=== PATIENT | male | born 1930 | race Caucasian/White ===

== ENCOUNTER 2017-01-06 21:04 | Observation (INO) | payer OTHER ==
[~2017-01-06] VITALS: Ht 167.6 cm; Wt 95.9 kg
[~2017-01-06 21:04] MED LIST: ALLOPURINOL300 MG PO; ASPIR 8181 M1 PO; CRESTOR40 MG PO; EYE DROPS15 M2 BOTH EYES; GLIMEPIRIDE4 MG PO; LISINOPRIL5 MG PO; METOPROLOL SUCC50 MG PO; NEXIUM40 MG PO; ONGLYZA2.5 MG PO; PLAVIX75 MG PO; VERAPAMIL HCL180 MG PO; ZESTRIL2.5 MG PO
[2017-01-06 21:44] LABS: HEMATOCRIT 40.8 % (38.0-50.0); MCH 30.4 PG (29.0-34.0); MCHC 33.3 G/DL (30.0-36.0); MCV 91.1 FL (86-99); MEAN PLAT.VOLUME 10.7 uM^3 (9.0-12.4); PLATELET COUNT 137 K/uL (156-360); RBC DIS.WIDTH-CV 14.2 % (11.8-14.6); RBC DIS.WIDTH-SD 46.2 % (39-53); RED BLOOD COUNT 4.48 M/uL (4.00-5.50); WHITE BLOOD COUNT 9.2 K/uL (4.1-10.2)
[2017-01-06 21:58] LABS: CHLORIDE 102 mEq/L (99-109); POTASSIUM 3.8 mEq/L (3.7-5.4); SODIUM 141 mEq/L (136-147)
[2017-01-06 22:00] LABS: GLUCOSE 147 mg/dL (70-99)
[2017-01-06 22:01] LABS: ANION GAP 14 MEQ/L (2-14)
[2017-01-06 22:02] LABS: TOTAL BILIRUBIN 0.6 mg/dL (0.0-1.0)
[2017-01-06 22:04] LABS: ALKALINE PHOSPHATASE 95 IU/L (3-129); GFR ESTIMATE (CALCULATED) 41 mL/min/
[2017-01-06 22:05] LABS: DIRECT BILIRUBIN 0.2 mg/dL (0.0-0.3); UREA NITROGEN (BUN) 22 mg/dL (9-23)
[2017-01-06 22:12] LABS: TROP-I INTERPRETATION NEGATIVE; TROPONIN-I 0.08 ng/mL (0.0-0.30)
[2017-01-06 22:41] LABS: D-DIMER ELISA > 4.00 mg/L FEU (< 0.57)
[2017-01-06 22:48] LABS: POINT-OF-CARE METER ID UU14100415
[2017-01-07 02:25] LABS: INTER. NORMALIZED RATIO 1.1; PROTHROMBIN TIME 11.4 (9.2-11.2); PTT 32.4 (25-32)
[2017-01-07 05:37] VITALS: BP 125/77
[2017-01-07 07:22] LABS: TROP-I INTERPRETATION NEGATIVE; TROPONIN-I 0.09 ng/mL (0.0-0.30)
[2017-01-07 12:14] VITALS: BP 96/55
[2017-01-07 12:16] LABS: TROP-I INTERPRETATION NEGATIVE; TROPONIN-I 0.14 ng/mL (0.0-0.30)
[2017-01-07] MEDS ORDERED: OXYGEN MC (13:58)
[2017-01-07 15:53] VITALS: BP 106/58
[2017-01-07] MEDS ORDERED: METOPROLOL SUC100 MG PO (17:27)
[2017-01-07] MEDS ORDERED: BIDIL1 TABLET PO (17:46)
[2017-01-07] MEDS ORDERED: LASIX40 MG PO (17:46)
[2017-01-07] MEDS ORDERED: LORAZEPAM0.5 MG PO (17:47)
[2017-01-07 21:12] VITALS: BP 104/63
[2017-01-08 00:45] VITALS: BP 112/64
[2017-01-08 04:57] VITALS: BP 100/56
[2017-01-08 06:12] LABS: HEMATOCRIT 37.6 % (38.0-50.0); MCH 30.9 PG (29.0-34.0); MCV 92.8 FL (86-99); RED BLOOD COUNT 4.05 M/uL (4.00-5.50)
[2017-01-08 06:13] LABS: MCHC 33.2 G/DL (30.0-36.0); MEAN PLAT.VOLUME 11.7 uM^3 (9.0-12.4); PLATELET COUNT 144 K/uL (156-360); RBC DIS.WIDTH-CV 14.5 % (11.8-14.6); RBC DIS.WIDTH-SD 49.7 % (39-53)
[2017-01-08 06:44] LABS: ANION GAP 8 MEQ/L (2-14); CHLORIDE 101 MEQ/L (99-109); GFR ESTIMATE (CALCULATED) 36 mL/min/; POTASSIUM 3.7 MEQ/L (3.7-5.4); SAMPLE HEMOLYSIS CHECK 0; SAMPLE ICTERIC CHECK 0; SAMPLE LIPEMIA CHECK 0; SODIUM 138 MEQ/L (136-147); UREA NITROGEN (BUN) 28 mg/dL (9-23)
[2017-01-08 06:47] LABS: GLUCOSE 90 mg/dL (70-99)
[2017-01-08 07:19] VITALS: BP 102/64
[2017-01-10] MEDS ORDERED: CRESTOR20 MG PO (14:30)
[2017-01-10] MEDS ORDERED: DULCOLAX5 MG PO (14:35)
== END 2017-01-08 13:14 | disposition home or self-care (01) ==
LOC: EME 21:04 → EDOF 01-07 04:25 → 5WEST 01-07 05:04
PROVIDERS: Emergency Medicine; Hospitalist; Internal Medicine
DX: I48.91 Unspecified atrial fibrillation (principal); R07.89 Other chest pain; I35.0 Nonrheumatic aortic (valve) stenosis; I10 Essential (primary) hypertension; R09.02 Hypoxemia; K76.9 Liver disease, unspecified; D68.9 Coagulation defect, unspecified; R53.1 Weakness; I25.10 Atherosclerotic heart disease of native coronary artery without angina pectoris; Z98.61 Coronary angioplasty status; I44.7 Left bundle-branch block, unspecified; Z98.890 Other specified postprocedural states; E11.9 Type 2 diabetes mellitus without complications; N28.9 Disorder of kidney and ureter, unspecified; D69.6 Thrombocytopenia, unspecified; Z79.84 Long term (current) use of oral hypoglycemic drugs; Z88.0 Allergy status to penicillin; Z91.041 Radiographic dye allergy status
CPT/HCPCS: 71020; 71250; 78582; 80048; 80076; 82948; 83880; 84484; 85027; 85379; 85610; 85730; 93005; 94799; 99281; 99285; A9540; A9567; G0378; J1650; J2405; J3010

== ENCOUNTER 2017-01-11 08:44 | Observation (INO) | payer OTHER ==
[~2017-01-11] VITALS: Ht 167.6 cm; Wt 97.2 kg
[~2017-01-11 08:44] MED LIST changes: +BIDIL1 TABLET PO; +CRESTOR20 MG PO; +DULCOLAX5 MG PO; +LASIX40 MG PO; +LORAZEPAM0.5 MG PO; +METOPROLOL SUC100 MG PO; +OXYGEN MC
[2017-01-11] MEDS ORDERED: METOPROLOL SUCC50 MG PO (09:18)
[2017-01-11 09:56] LABS: EOSINOPHIL (%) 2.5 % (0-5); EOSINOPHIL COUNT 0.2 K/uL (0-0.3); HEMATOCRIT 39.9 % (38.0-50.0); IMMATURE GRANULOCYTE (%) 1.9 % (0.0-0.7); IMMATURE GRANULOCYTE COUNT 1.8 K/uL; LYMPHOCYTE COUNT 1.2 K/uL (1.0-2.8); MCH 30.3 PG (29.0-34.0); MCHC 33.1 G/DL (30.0-36.0); MCV 91.5 FL (86-99); MEAN PLAT.VOLUME 10.7 uM^3 (9.0-12.4); MONOCYTE (%) 5.1 % (3-12); MONOCYTE COUNT 0.5 K/uL (0-0.8); NEUTROPHIL (%) 78.3 % (45-76); NEUTROPHIL COUNT 7.6 K/uL (1.8-6.4); PLATELET COUNT 139 K/uL (156-360); RBC DIS.WIDTH-CV 14.1 % (11.8-14.6); RBC DIS.WIDTH-SD 46.3 % (39-53); RED BLOOD COUNT 4.36 M/uL (4.00-5.50); WHITE BLOOD COUNT 9.7 K/uL (4.1-10.2)
[2017-01-11 10:18] LABS: TROP-I INTERPRETATION NEGATIVE; TROPONIN-I 0.04 ng/mL (0.0-0.30)
[2017-01-11 10:35] LABS: CHLORIDE 102 mEq/L (99-109); SODIUM 141 mEq/L (136-147)
[2017-01-11 10:36] LABS: POTASSIUM 4.5 mEq/L (3.7-5.4)
[2017-01-11 10:37] LABS: GLUCOSE 140 mg/dL (70-99)
[2017-01-11 10:39] LABS: ANION GAP 15 MEQ/L (2-14); TOTAL BILIRUBIN 0.5 mg/dL (0.0-1.0)
[2017-01-11 10:41] LABS: ALKALINE PHOSPHATASE 109 IU/L (3-129); GFR ESTIMATE (CALCULATED) 34 mL/min/
[2017-01-11 10:42] LABS: UREA NITROGEN (BUN) 33 mg/dL (9-23)
[2017-01-11 10:44] LABS: D-DIMER ELISA > 4.00 mg/L FEU (< 0.57)
[2017-01-11 11:14] LABS: INFLUENZA A VIRAL ANTIGEN NEGATIVE; INFLUENZA B VIRAL ANTIGEN NEGATIVE
[2017-01-11] MEDS ORDERED: TOPROL XL100 MG PO (12:34)
[2017-01-11 13:31] VITALS: BP 109/73
[2017-01-11 16:12] VITALS: BP 99/69
[2017-01-11 16:48] LABS: TROP-I INTERPRETATION NEGATIVE; TROPONIN-I 0.07 ng/mL (0.0-0.30)
[2017-01-11 19:30] VITALS: BP 104/75
[2017-01-11 22:23] LABS: TROP-I INTERPRETATION NEGATIVE; TROPONIN-I 0.09 ng/mL (0.0-0.30)
[2017-01-12 00:10] VITALS: BP 97/57
[2017-01-12 03:18] LABS: POINT-OF-CARE METER ID UU14162513
[2017-01-12 04:04] VITALS: BP 116/70
[2017-01-12 06:21] LABS: ANION GAP 10 MEQ/L (2-14); CHLORIDE 98 MEQ/L (99-109); GFR ESTIMATE (CALCULATED) 36 mL/min/; GLUCOSE 144 mg/dL (70-99); POTASSIUM 3.8 MEQ/L (3.7-5.4); SAMPLE HEMOLYSIS CHECK 0; SAMPLE ICTERIC CHECK 0; SAMPLE LIPEMIA CHECK 0; SODIUM 139 MEQ/L (136-147); UREA NITROGEN (BUN) 32 mg/dL (9-23)
[2017-01-12 08:05] VITALS: BP 107/68
[2017-01-12 12:02] VITALS: BP 92/61
[2017-01-12 12:56] LABS: ADD MIUA? YES; BILIRUBIN NEGATIVE; BLOOD NEGATIVE; COLOR YELLOW ((YELLOW)); GLUCOSE (STRIP) NEGATIVE; KETONES NEGATIVE; LEUKOCYTES TRACE; NITRITE NEGATIVE; PROTEIN (STRIP) NEGATIVE; SPECIFIC GRAVITY 1.017 (1.000-1.030); UROBILINOGEN 0.2 MG/DL (0.2-1.0)
[2017-01-12 13:49] LABS: BACTERIA NONE SEEN /HPF; EPITHELIAL CELLS RARE /HPF; MUCUS TRACE /LPF; UCUL ADDED? NO; WHITE BLOOD CELLS 0-5 /HPF (0-5)
[2017-01-12 14:16] LABS: POINT-OF-CARE METER ID UU14162513
== END 2017-01-12 15:45 | disposition home or self-care (01) ==
LOC: EME 08:44 → EDOF 11:57 → 5WEST 11:57
PROVIDERS: Emergency Medicine; Hospitalist; Internal Medicine
DX: R07.89 Other chest pain (principal); I35.0 Nonrheumatic aortic (valve) stenosis; Z95.828 Presence of other vascular implants and grafts; I13.0 Hypertensive heart and chronic kidney disease with heart failure and stage 1 through stage 4 chronic kidney disease, or unspecified chronic kidney disease; I50.22 Chronic systolic (congestive) heart failure; E11.22 Type 2 diabetes mellitus with diabetic chronic kidney disease; N18.3 Chronic kidney disease, stage 3 (moderate); J96.91 Respiratory failure, unspecified with hypoxia; E78.5 Hyperlipidemia, unspecified; Z99.81 Dependence on supplemental oxygen; D68.9 Coagulation defect, unspecified; K76.9 Liver disease, unspecified
CPT/HCPCS: 71010; 80048; 80053; 81003; 82948; 83880; 84484; 85025; 85379; 87502; 93005; 93306; 94799; 99202; 99281; 99285; G0378; J1644; J1940; J2270; J2405